=== PATIENT | female | born 1935 | race Two or more races ===

== ENCOUNTER 2023-05-18 09:54 | Emergency (ER) | payer OTHER ==
[~2023-05-18] VITALS: Ht 162.6 cm; Wt 62.6 kg
[2023-05-18] MEDS ORDERED: MILLIPRED5 MG (10:01)
[2023-05-18] MEDS ORDERED: COZAAR50 MG (10:02)
[2023-05-18] MEDS ORDERED: ATORVASTATIN CA10 MG (10:02)
[2023-05-18] MEDS ORDERED: ADULT LOW DOSE81 M1 (10:04)
[2023-05-18] MEDS ORDERED: SYNTHROID88 MCG (10:04)
[2023-05-18] MEDS ORDERED: TOPROL XL25 M1 (10:11)
[2023-05-18 12:10] LABS: HEMATOCRIT 41.5 % (36.0-45.00); HEMOGLOBIN 14.3 g/dL (12.0-15.00); MEAN CELL VOLUME 86.4 fL (80.00-100.00); MEAN CORPUSCULAR HEMOGLOBIN 29.9 pg (27.00-32.0); MEAN CORPUSCULAR HGB CONC 34.6 g/dl (32.0-36.0); PLATELET COUNT 235 K/uL (150-450); RED CELL DISTRIBUTION WIDTH 14.6 % (11.5-14.5)
[2023-05-18 13:17] LABS: ALBUMIN 3.1 gm/dL (3.4-5.0); BILIRUBIN TOTAL 0.64 mg/dL (0.3-1.2); BILIRUBIN,CONJUGATED 0.17 mg/dL (0.0-0.2); BILIRUBIN,UNCONJUGATED 0.47 mg/dL (0.0-0.6); CALCIUM 9.2 mg/dL (8.5-10.1); CREATININE SERUM 1.06 mg/dL (0.55-1.02); GFR 49.27; POTASSIUM 4.6 mEq/L (3.5-5.1); TOTAL PROTEIN 8.1 gm/dL (6.4-8.2)
[2023-05-18 14:21] LABS: URINE APPEARANCE Cloudy; URINE BILIRRUBIN Negative (NEGATIVE); URINE BLOOD Trace; URINE COLOR Yellow; URINE GLUCOSE Negative (NEGATIVE); URINE LEUKOCYTE Small; URINE NITRATE Negative; URINE UROBILINOGEN 0.2 E.U./dl
[2023-05-18 14:25] LABS: URINE EPITHELIAL CELLS 3.4 uL (0.0-38.8); URINE WBC 509.7 uL (0.0-23.2)
[2023-05-18 14:29] LABS: URINE PROTEIN 100 (NEGATIVE)
[2023-05-18 14:31] LABS: URINE BACTERIA > 9821.2 uL (0.0-1933)
== END 2023-05-18 18:08 | disposition home or self-care (01) ==
LOC: ER 09:55
PROVIDERS: Emergency Medicine
DX: R10.9 Unspecified abdominal pain (principal); K80.20 Calculus of gallbladder without cholecystitis without obstruction; R10.13 Epigastric pain
CPT/HCPCS: 36415; 74177; 99284; Q9965